=== PATIENT | male | born 1955 | race African-American/Black ===

== ENCOUNTER 2017-05-28 15:10 | Emergency (ER) | payer SELFPAY ==
[~2017-05-28] VITALS: Ht 175.3 cm; Wt 90.0 kg
[2017-05-28 17:03] LABS: CHLORIDE 108 mEq/L (98-107)
[2017-05-28 17:04] LABS: BASOPHILS % 0.4 % (0.0-2.0); HEMATOCRIT. 43.6 % (42.0-52.0); LYMPHOCYTES % 21.1 % (20.0-50.0); MEAN CORPUSCULAR HEMOGLOBIN 28.9 pg (28.0-32.0); MEAN CORPUSCULAR VOLUME 84.1 fL (80.0-94.0); MEAN PLATELET VOLUME 8.5 fl (7.4-10.4); MONOCYTES % 9.7 % (2.0-8.0); NEUTROPHILS % 67.8 % (40.0-76.0); PLATELET 184 x1000/uL (130-400); RED BLOOD CELL COUNT 5.19 mill/uL (4.7-6.1); RED CELL DISTRIBUTION WIDTH 14.9 % (11.6-14.6)
[2017-05-28 17:12] LABS: CARBON DIOXIDE 26 mEq/L (21-32)
[2017-05-28 18:16] VITALS: BP 155/78
== END 2017-05-28 18:39 | disposition home or self-care (01) ==
LOC: ER 15:34
DX: R42 Dizziness and giddiness (principal)
CPT/HCPCS: 36415; 80053; 85025; 93005; 99285